=== PATIENT | female | born 2005 | race Caucasian/White ===

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

== ENCOUNTER 2025-04-04 11:29 | Outpatient (CLI) | payer BC, SELFPAY ==
[2025-04-05 05:21] LABS: Hepatitis B Surf Ab Quant <3.5 mIU/mL (Immunity>10)
[2025-04-05 06:37] LABS: Measles Antibodies, IgG 50.9 AU/mL (Immune >16.4); Mumps Abs, IgG 13.6 AU/mL (Immune >10.9); Rubella Antibodies, IgG <0.90 index (Immune >0.99); Varicella Zoster IgG Reactive (Non Reactive)
== END 2025-04-04 23:59 | disposition home or self-care (01) ==
LOC: LAB 11:29
PROVIDERS: PCP Nurse Practitioner Family; Visit Provider Nurse Practitioner Family
DX: Z02.1 Encounter for pre-employment examination (principal)
CPT/HCPCS: 36415; 86706; 86735; 86762; 86765; 86787